=== PATIENT | male | born 1985 ===

== ENCOUNTER 2017-09-16 18:46 | Emergency (ER) | payer SELFPAY ==
[2017-09-16] MEDS ORDERED: Lidocaine 2% Inj (20ml) INFIL ONE (19:09)
[2017-09-16] MEDS ORDERED: Tetanus/Diphtheria Toxoids 0.5 ml Syringe IM ONE (19:11)
[2017-09-16] MEDS ORDERED: Lidocaine 2% Inj (20ml) ONE (19:11)
[2017-09-16 19:20] VITALS: RESP 16; TEMP 98.2; O2SAT 98
--- NOTE | 2017-09-16 19:36 | C.PDOC ---
History Of Present Illness 32-year-old male, presents to the emergency department for evaluation of laceration to the right lambert sustained prior to arrival at home. Patient denies deformity, weakness, sensory or vascular deficits to injured leg. Ambulate to Ed for evaluation, not in any apparent distress. Time Seen by Provider: 09/16/17 18:58 Chief Complaint (Nursing): Lower Extremity Problem/Injury History Per: Patient History/Exam Limitations: no limitations Onset/Duration Of Symptoms: Other (prior to arrival) Past Medical History Reviewed: Historical Data, Nursing Documentation, Vital Signs Vital Signs: Last Vital Signs Temp 98.2 F 09/16/17 19:01 Pulse 74 09/16/17 19:01 Resp 16 09/16/17 19:01 BP 147/93 H 09/16/17 19:01 Pulse Ox 98 09/16/17 19:36 Family History: States: No Known Family Hx - Social History Hx Alcohol Use: No Hx Substance Use: No - Immunization History Hx Tetanus Toxoid Vaccination: No Hx Influenza Vaccination: No Hx Pneumococcal Vaccination: No Review Of Systems Constitutional: Negative for: Fever Skin: Positive for: Other (laceration to right lambert) Neurological: Negative for: Weakness, Numbness Physical Exam - Physical Exam Appears: Non-toxic, No Acute Distress Skin: Warm, Dry, Other (Right lambert 3cm cutaneous, C-shaped laceration, mild bloody oozing noted. No wound FB, no palpable defomrity.) Extremity: Normal ROM, No Tenderness, Capillary Refill (less than 2sec to Right foot), No Deformity, No Swelling Neurological/Psych: Oriented x3, Normal Speech, Normal Motor, Normal Sensation, Normal Reflexes ED Course And Treatment O2 Sat by Pulse Oximetry: 98 (RA) Pulse Ox Interpretation: Normal Progress Note: On re-eval, pt is afebrile, hemodynamicaly stable. NOn-toxic. Ambulatory in ED with stable gait. RLE: exam c/w laceration to anterior mid tibia closed with sutures, no complication. FAROM, no neurovascular deficits. Pt advised on wound care. tetanus given. Pt ref. to f/u with PMD in 2 days for wound check. return to ED if any worsening or new changes. Laceration - Laceration Repair RIGHT LAMBERT Wound Length (In cm): 3cm Description Of Wound: Irregular (C-shape, cutaneous) Wound Cleansed With: Betadine Anesthesia: Lidocaine 2% Wound Examination: Irrigated With Saline, No FB With Wound Exploration, No Tendon Injury With Wound Exploration Wound Closure: Suture (#4) Suture Technique And Material Used: Interrupted, Nylon (3-0) Wound Complexity: Simple Disposition Counseled Patient/Family Regarding: Studies Performed, Diagnosis, Need For Followup - Disposition Referrals: [facility] at [facility] [Outside] Disposition: HOME/ ROUTINE Disposition Time: 19:20 Condition: STABLE Additional Instructions: LIGHT DUTY TO INJURED LEG KEEP WOUND CLEAN SUTURE REMOVAL IN 7-10 DAYS RETURN TO ED IF ANY WORSENING OR NEW CHANGES, SIGN OF INFECTION Instructions: Laceration (ED) Forms: [employer] (Khmer) - Clinical Impression Clinical Impression: Laceration - Scribe Statement The provider has reviewed the documentation as recorded by the Scribe (Devin Gonzalez) All medical record entries made by the Scribe were at my direction and personally dictated by me. I have reviewed the chart and agree that the record accurately reflects my personal performance of the history, physical exam, medical decision making, and the department course for this patient. I have also personally directed, reviewed, and agree with the discharge instructions and disposition.
[2017-09-16 20:05] VITALS: BP 133/74; PULSE 78
== END 2017-09-16 20:05 | disposition home or self-care (01) ==
LOC: C.ER 18:46
DX: S81.811A Laceration without foreign body, right lower leg, initial encounter (principal); W45.8XXA Other foreign body or object entering through skin, initial encounter; Y92.89 Other specified places as the place of occurrence of the external cause

== ENCOUNTER 2017-09-25 09:24 | Emergency (ER) | payer SELFPAY ==
[2017-09-25 09:32] VITALS: BMI 24.9
[2017-09-25 09:34] VITALS: TEMP 98.4
--- NOTE | 2017-09-25 10:27 | C.PDOC ---
History Of Present Illness 32 year old male presents to the ER for suture removal/wound check for sutures he had placed to the right anterior leg 9 days ago in this ER. Patient reports he has noticed some increased redness and swelling to the area. Denies fever, chills, or pain. Time Seen by Provider: 09/25/17 09:44 Chief Complaint (Nursing): Suture/Staple Removal History Per: Patient History/Exam Limitations: no limitations Onset/Duration Of Symptoms: Days Ago, Laceration Current Symptoms Are (Timing): Better Location Of Injury: Anterior: Leg Recent travel outside of the [place]: No Past Medical History Reviewed: Historical Data, Nursing Documentation, Vital Signs Vital Signs: Last Vital Signs Temp 98.4 F 09/25/17 09:32 Pulse 58 L 09/25/17 09:32 Resp 18 09/25/17 09:32 BP 115/68 09/25/17 09:32 Pulse Ox 99 09/25/17 10:49 Family History: States: Unknown Family Hx - Social History Hx Alcohol Use: No Hx Substance Use: No - Immunization History Hx Tetanus Toxoid Vaccination: No Hx Influenza Vaccination: No Hx Pneumococcal Vaccination: No Review Of Systems Except As Marked, All Systems Reviewed And Found Negative. Constitutional: Negative for: Fever, Chills Skin: Positive for: Other (Healing laceration) Physical Exam - Physical Exam Additional Physical Exam Comments: Extremity: Right anterior lower leg laceration with swelling and overlaying scar , sutures in place with surround erythema and weep, no obvious purulence. ED Course And Treatment O2 Sat by Pulse Oximetry: 99 Medical Decision Making Medical Decision Making: Sutures removed XR shows swelling, no fracture. Will discharge on antibiotics, f/u PMD, return to ED for worsening redness, discharge, fever, or any other problem. Disposition - Disposition Referrals: [facility] [Outside] Disposition: HOME/ ROUTINE Disposition Time: 12:10 Condition: STABLE Prescriptions: Cephalexin [cephalexin] 500 mg PO Q8H #30 cap Sulfamethoxazole/Trimethoprim [Bactrim DS 800 mg-160 mg] 1 tab PO BID #20 tab Instructions: Stitches Removal Forms: [employer] (Icelandic) - Clinical Impression Clinical Impression: Removal of suture - Scribe Statement The provider has reviewed the documentation as recorded by the Scribe Cleveland Higgins All medical record entries made by the Scribe were at my direction and personally dictated by me. I have reviewed the chart and agree that the record accurately reflects my personal performance of the history, physical exam, medical decision making, and the department course for this patient. I have also personally directed, reviewed, and agree with the discharge instructions and disposition.
--- NOTE | 2017-09-25 11:25 | RAD ---
PROCEDURE: Radiographs of the right tibia and fibula. HISTORY: anterior lambert strike COMPARISON: None available. TECHNIQUE: Frontal and lateral views obtained. FINDINGS: BONES: No fracture or destructive lesion. Small enostosis in the anterior medial malleolus. JOINT SPACES: Unremarkable. OTHER FINDINGS: Focal soft tissue swelling over the anterior surface of the mid tibial diaphysis. IMPRESSION: Focal soft tissue swelling over the anterior surface of the mid tibial diaphysis. No demonstrated fracture or dislocation.
[2017-09-25 12:19] VITALS: BP 130/83; PULSE 57; RESP 20; O2SAT 98
== END 2017-09-25 12:22 | disposition home or self-care (01) ==
LOC: C.ER 09:24
DX: Z48.02 Encounter for removal of sutures (principal)